=== PATIENT | male | born 1990 | race Caucasian/White ===

== ENCOUNTER 2019-05-16 13:25 | Inpatient (IN) | payer OTHER ==
[2019-05-16 14:02] VITALS: BMI 30.1
--- NOTE | 2019-05-16 14:27 | HP ---
CIWA Score Nausea/Vomitin Muscle Tremors: 2 Anxiety: 3 Agitation: 3 Paroxysmal Sweats: 1-Minimal Palms Moist Orientation: 0-Oriented Tacttile Disturbances: 1-Very Mild Itch/Numbness Auditory Disturbances: 1-Very Mild Visual Disturbances: 0-None Headache: 2-Mild CIWA-Ar Total Score: 16 - Admission Criteria OASAS Guidelines: Admission for Medically Managed Detox: Requires at least one of the followin. CIWA greater than 12 2. Seizures within the past 24 hours 3. Delirium tremens within the past 24 hours 4. Hallucinations within the past 24 hours 5. Acute intervention needed for co occurring medical disorder 6. Acute intervention needed for co occurring psychiatric disorder 7. Severe withdrawal that cannot be handled at a lower level of care (continued vomiting, continued diarrhea, abnormal vital signs) requiring intravenous medication and/or fluids 8. Admission ROS BHS - HPI Chief Complaint: i need help to stop drinking Allergies/Adverse Reactions: Allergies Allergy/AdvReac Type Severity Reaction Status Date / Time No Known Allergies Allergy Verified 05/16/19 13:51 History of Present Illness: this 29 years old male with alcohol dependence,seeking detox,withdrawal symptom, multiple admissions in detox,last in [place],in 02/27 had history of frequent falls syncope alcohol related history of hypertension no significant period of sobriety plan for out patient program ,aa meeting depression Exam Limitations: No Limitations - Ebola screening Have you traveled outside of the country in the last 21 days: No (N) Have you had contact with anyone from an Ebola affected area: No Do you have a fever: No - Review of Systems Constitutional: Loss of Appetite, Malaise, Night Sweats, Changes in sleep, Weakness EENT: reports: Nose Congestion Respiratory: reports: No Symptoms reported Cardiac: reports: No Symptoms Reported GI: reports: Nausea, Vomiting, Abdominal cramping : reports: No Symptoms Reported Musculoskeletal: reports: Back Pain, Muscle Pain Integumentary: reports: Dryness Neuro: reports: Headache, Tremors Endocrine: reports: No Symptoms Reported Hematology: reports: No Symptoms Reported Psychiatric: reports: No Sypmtoms Reported, Judgement Intact, Mood/Affect Appropiate, Orientated x3 Other Systems: Reviewed and Negative Patient History - Patient Medical History Hx Anemia: No Hx Asthma: No Hx Chronic Obstructive Pulmonary Disease (COPD): No Hx Cancer: No Hx Cardiac Disorders: No Hx Congestive Heart Failure: No Hx Hypertension: Yes (on inderal) Hx Hypercholesterolemia: No Hx Pacemaker: No HX Cerebrovascular Accident: No Hx Seizures: No Hx Dementia: No Hx Diabetes: No Hx Gastrointestinal Disorders: No Hx Liver Disease: No Hx Genitourinary Disorders: No Hx Sexually Transmitted Disorders: No Hx Renal Disease (ESRD): No Hx Thyroid Disease: No Hx Human Immunodeficiency Virus (HIV): No (last 02/27 negative) Hx Hepatitis C: No Hx Depression: Yes Hx Suicide Attempt: No Hx Bipolar Disorder: No Hx Schizophrenia: No Other Medical History: no suicidal,no homicidal - Patient Surgical History Hx Appendectomy: Yes (in 2009 [facility]) Hx Cholecystectomy: No Hx Genitourinary Surgery: No Hx Section: No Hx Orthopedic Surgery: No Hx Hysterectomy: No Anesthesia Reaction: No - PPD History Documented Results: Negative w/o proof Implanted On Prior [facility] Admission?: No PPD to be Administered?: No - Smoking Cessation Smoking history: Never smoked - Substance & Tx. History Hx Alcohol Use: Yes Hx Substance Use: No Substance Use Type: Alcohol Hx Substance Use Treatment: Yes (last in [place]) - Substances abused Alcohol Substance route: Oral Frequency: Daily Amount used: 1 liter of vodka Age of first use: 18 Date of last use: 05/16/19 Family Disease History - Family Disease History Family Disease History: CA: Father (), Mother () Admission Physical Exam BHS - Vital Signs Vital Signs: Vital Signs - 24 hr 05/16/19 13:50 Temperature 98.9 F Pulse Rate 137 H Respiratory 18 Rate Blood Pressure 157/99 - Physical General Appearance: Yes: Moderate Distress, Tremorous, Irritable, Sweating, Anxious HEENTM: Yes: Normocephalic, BILLY, Pharynx Normal Respiratory: Yes: Lungs Clear, Normal Breath Sounds, No Respiratory Distress Neck: Yes: Within Normal Limits, Supple, Trachea in good position Breast: Yes: Within Normal Limits Cardiology: Yes: Tachycardia Abdominal: Yes: Within Normal Limits, Normal Bowel Sounds, Non Tender, Flat, Soft Genitourinary: Yes: Within Normal Limits Back: Yes: Muscle Spasm Musculoskeletal: Yes: full range of Motion, Back pain, Muscle Pain Extremities: Yes: Tremors, Other (ecchymosis of right knee) Neurological: Yes: Within Normal Limits, blood bank custodian II-XII NML intact, Fully Oriented, Alert, Motor Strength 5/5 Integumentary: Yes: Dry Lymphatic: Yes: Within Normal Limits - Diagnostic (1) Alcohol dependence with uncomplicated withdrawal Current Visit: Yes Status: Acute (2) Alcohol dependence with uncomplicated intoxication Current Visit: Yes Status: Acute (3) Syncope Current Visit: Yes Status: Acute (4) Frequent falls Current Visit: Yes Status: Acute (5) Hypertension Current Visit: Yes Status: Acute (6) Depression Current Visit: Yes Status: Acute Cleared for Admission S - Detox or Rehab [facility] Level of Care: Medically Managed Detox Regimen/Protocol: Librium Breathalyzer - Breathalyzer Breathalyzer: 0.183 Inpatient Rehab Admission - Rehab Decision to Admit Inpatient rehab admission?: No
[2019-05-16] MEDS ORDERED: MAGNESIUM HYDROX 2400MG/30ML ORAL SUSPENSION 30 ML CUP PO PRN (14:38)
[2019-05-16] MEDS ORDERED: MAGNESIUM CITRATE 300 ML BOTTLE PO PRN (14:38)
[2019-05-16] MEDS ORDERED: ACETAMINOPHEN 325 MG TABLET (FP) PO PRN ×2 (14:38)
[2019-05-16] MEDS ORDERED: METHOCARBAMOL 500 MG TABLET PO PRN (14:38)
[2019-05-16] MEDS ORDERED: MELATONIN 5 MG TABLETS PO PRN (14:38)
[2019-05-16] MEDS ORDERED: IBUPROFEN 400 MG TABLET (FP) PO PRN (14:38)
[2019-05-16] MEDS ORDERED: MENTHOL/PHENOL 1 EACH UD MM PRN (14:38)
[2019-05-16] MEDS ORDERED: MAG HYDROX/AL HYDROX/SIMETH 30 ML UNIT-DOSE CUP PO PRN (14:38)
[2019-05-16] MEDS ORDERED: BISMUTH SUBSALICYLATE 524 MG/30 ML UD PO PRN (14:38)
[2019-05-16] MEDS ORDERED: chlordiazePOXIDE HCL 25 MG CAPSULE PO ONE (15:30)
[2019-05-16] MEDS: ONDANSETRON *ODT* 4 MG TABLET SL PRN ×2 (15:57→21:49)
[2019-05-16] MEDS: chlordiazePOXIDE HCL 25 MG CAPSULE PO SCH ×2 (17:08→22:50)
[2019-05-16] MEDS: hydrOXYzine HCL 25 MG TABLET (FP) PO PRN (17:54)
[2019-05-16] MEDS: chlordiazePOXIDE HCL 25 MG CAPSULE PO PRN (20:10)
[2019-05-16] MEDS ORDERED: cloNIDine HCL 0.1 MG TABLET PO ONE (21:55)
[2019-05-16] MEDS ORDERED: ASPIRIN 81 MG CHEWABLE TABLETS PO ONE (21:57)
[2019-05-16] MEDS ORDERED: ASPIRIN COATED 81 MG TABLET.EC ONE (22:02)
[2019-05-16] MEDS: THIAMINE HCL 100 MG TABLET (FP) PO SCH (22:07)
--- NOTE | 2019-05-16 22:17 | PN ---
[facility] Progress Note Note: Patient's blood pressure was B/P 156/99 and HR 128. Patient appears very anxious and tremorous Vital Signs Temperature 99.0 F 05/16/19 21:55 Pulse Rate 128 H 05/16/19 21:55 Respiratory Rate 18 05/16/19 21:55 Blood Pressure 156/99 05/16/19 21:55 O2 Sat by Pulse Oximetry (%) Action: Clonidine 0.1mg tablet oral ordered Aspirin 81mg tablet oral ordered Vistaril 25mg tablet due and was administered by the nurse EKG ordered
--- NOTE | 2019-05-17 00:59 | PN ---
[facility] Progress Note Note: Patient's EKG indicates Prolonged QT with QT/QTc of 452/515ms respectively Patient reports that his EKG is usually abnormal HydroxyzineHCL 50mg tablet oral given
[2019-05-17] MEDS: hydrOXYzine HCL 25 MG TABLET (FP) PO PRN ×2 (01:08→11:48)
[2019-05-17] MEDS: chlordiazePOXIDE HCL 25 MG CAPSULE PO SCH ×4 (05:39→22:30)
[2019-05-17] MEDS: ONDANSETRON *ODT* 4 MG TABLET SL PRN ×2 (05:46→11:48)
[2019-05-17] MEDS: PRENATAL VITAMINS W/ FOLIC ACID TABLET (FP) PO SCH (10:14)
[2019-05-17 10:58] LABS: ALBUMIN 4.9 g/dl (3.4-5.0); BILIRUBIN,TOTAL 1.4 mg/dL (0.2-1); BLOOD UREA NITROGEN 14.6 mg/dL (7-18); CALCIUM 9.4 mg/dL (8.5-10.1); CREATININE 1.1 mg/dL (0.55-1.3); POTASSIUM 3.9 mmol/L (3.5-5.1); TOT PROT 8.3 g/dl (6.4-8.2)
[2019-05-17 11:10] LABS: MCH 29.6 pg (25.7-33.7)
--- NOTE | 2019-05-17 11:27 | CONSULT ---
[facility] Psychiatric Consult - Data Date of interview: 05/17/19 Admission source: [facility] Identifying data: Patient is a 29 year old single male, without children, unemployed, domiciled, and is supported by his financial savings account. This is patient's first admission to detox at [facility]. Patient admitted to for alcohol dependence. Substance Abuse History: Smoking Cessation. Smoking history: Never smoked. - Substance & Tx. History. Hx Alcohol Use: Yes. Hx Substance Use: No. Substance Use Type: Alcohol. Hx Substance Use Treatment: Yes (last in [place]). - Substances abused. Alcohol. Substance route: Oral. Frequency: Daily. Amount used: 1 liter of vodka. Age of first use: 18. Date of last use: 05/16/19 Medical History: hypertension. Psychiatric History: Patient denies h/o psychiatric hospitalization and suicide attempt. First psychiatric contact was in 2009 at an outpatient clinic in [place] while attending College. He was diagnosed with Major depressive disorder and Generalized anxiety disorder. Mr. Lema reports being prescribed prozac which was than changed to zoloft. After several months he was again prescribed prozac and wellbutrin was added. States he continued drinking daily despite accepting psychotropic medications. Since his return home from [place] in 2011 he has only seen a mental health provider while in detox/rehab setting. Mr. Bhakta was at a Rehab in [place] and was resumed on wellbutrin 300mg XL + Prozac 30mg daily. States he receives refills from his PCP. Patient reports nonadherence to wellbutrin 300mg XL for over two weeks and reports last taking prozac 4-5 days ago. At present patient is anxious, and is experiencing difficulty sleeping. Physical/Sexual Abuse/Trauma History: denies. Mental Status Exam - Mental Status Exam Alert and Oriented to: Time, Place, Person Cognitive Function: Good Patient Appearance: Well Groomed Mood: Anxious Affect: Mood Congruent Patient Behavior: Restless (Patient is actively withdrawing. He is tremelous.), Cooperative Speech Pattern: Clear Voice Loudness: Normal Thought Process: Intact, Goal Oriented Thought Disorder: Not Present Hallucinations: Denies Suicidal Ideation: Denies Homicidal Ideation: Denies Insight/Judgement: Poor Sleep: Poorly Appetite: Fair Muscle strength/Tone: Normal Gait/Station: Normal Psychiatric Findings - Problem List ([place] 1, 2,3) (1) Depressive disorder Current Visit: Yes Status: Chronic (2) Alcohol dependence with uncomplicated withdrawal Current Visit: Yes Status: Acute (3) Generalized anxiety disorder Current Visit: Yes Status: Chronic (4) Alcohol-induced sleep disorder Current Visit: Yes Status: Acute - Initial Treatment Plan Initial Treatment Plan: Psychoeducation provided. Detoxification in progress. Will order Prozac 20mg + Seroquel 50mg for insomnia. Will d/c vistaril 25mg q6h and will order vistaril 50mg q6h for anxiety. Wellbutrin to be held due to risk of seizure being induce. Patient is visibily shaking and tremulous. Benefits and side effects discussed. Verbal consent given.
[2019-05-17 11:52] LABS: HEMATOCRIT 42.6 % (35.4-49); HEMOGLOBIN 14.5 GM/dL (11.7-16.9); MCHC 34.1 g/dl (32.0-35.9); MEAN CELL VOLUME 86.8 fl (80-96); MEAN PLT VOLUME 7.8 fl (7.5-11.1); RBC 4.91 M/mm3 (4.00-5.60); WHITE BLOOD COUNT 3.5 K/mm3 (4.0-10.0)
[2019-05-17 11:55] LABS: PLATELET COUNT 63 K/MM3 (134-434)
[2019-05-17] MEDS: chlordiazePOXIDE HCL 25 MG CAPSULE PO PRN (12:33)
[2019-05-17] MEDS ORDERED: hydrOXYzine HCL 25 MG TABLET (FP) PO PRN (12:49)
--- NOTE | 2019-05-17 13:34 | EKG ---
Test Reason : Blood Pressure : / mmHG Vent. Rate : 078 BPM Atrial Rate : 078 BPM P-R Int : 208 ms QRS Dur : 088 ms QT Int : 452 ms P-R-T Axes : 059 059 053 degrees QTc Int : 515 ms NORMAL SINUS RHYTHM WITH 1ST DEGREE A-V BLOCK PROLONGED QT NONSPECIFIC ST ABNORMALITY ABNORMAL ECG WHEN COMPARED WITH ECG OF 16-MAY-2019 15:04, NO SIGNIFICANT CHANGE WAS FOUND Confirmed by MD MARILYNN, JOSEPH ([id number]) on 05/17/2019 1:34:15 PM Referred By: STONE ARAGON Confirmed By:JOSEPH SUBRAMANIAN MD
--- NOTE | 2019-05-17 13:57 | EKG ---
Test Reason : Blood Pressure : / mmHG Vent. Rate : 105 BPM Atrial Rate : 105 BPM P-R Int : 176 ms QRS Dur : 078 ms QT Int : 380 ms P-R-T Axes : 065 053 052 degrees QTc Int : 502 ms SINUS TACHYCARDIA OTHERWISE NORMAL ECG NO PREVIOUS ECGS AVAILABLE Confirmed by MD MARILYNN, JOSEPH ([id number]) on 05/17/2019 1:57:11 PM Referred By: LUKASZ ARAGON Confirmed By:JOSEPH SUBRAMANIAN MD
[2019-05-17] MEDS ORDERED: TRIMETHOBENZAMIDE HCL 200MG/2ML INJ IM PRN (14:00)
--- NOTE | 2019-05-17 16:45 | PN ---
S CIWA - CIWA Score Nausea/Vomitin Muscle Tremors: 4-Moderate,w/Arms Extend Anxiety: 3 Agitation: 1-Slight > Activity Paroxysmal Sweats: 3 Orientation: 2-Disoriented Date<2 days Tacttile Disturbances: 2-Mild Itch/Numbness/Burn Auditory Disturbances: 0-None Visual Disturbances: 0-None Headache: 0-None Present CIWA-Ar Total Score: 18 BHS Progress Note (SOAP) Subjective: Interrupted sleep, Nausea, Tremors, Body Aches, Sweating, Poor Appetite. Objective: PATIENT A & O X 2 (UNCERTAIN ABOUT CURRENT DAY / DATE). PATIENT OBSERVED AMBULATING ON UNIT UNASSISTED. IN NO ACUTE DISTRESS. 05/17/19 16:42 Vital Signs Temperature 97.9 F 05/17/19 13:23 Pulse Rate 69 05/17/19 15:30 Respiratory Rate 18 05/17/19 15:30 Blood Pressure 146/84 05/17/19 13:23 O2 Sat by Pulse Oximetry (%) Laboratory Tests 05/17/19 05/17/19 05/17/19 07:42 07:42 07:42 WBC 3.5 L RBC 4.91 Hgb 14.5 Hct 42.6 MCV 86.8 MCH 29.6 MCHC 34.1 RDW 14.0 Plt Count 63 L MPV 7.8 Sodium 132 L Potassium 3.9 Chloride 87 L Carbon Dioxide 35 H Anion Gap 9 BUN 14.6 Creatinine 1.1 Est GFR (CKD-EPI)AfAm 104.59 Est GFR (CKD-EPI)NonAf 90.24 Random Glucose 104 Calcium 9.4 Total Bilirubin 1.4 H AST 111 H ALT 152 H Alkaline Phosphatase 75 Total Protein 8.3 H Albumin 4.9 RPR Titer HIV 1&2 Antibody Screen Negative HIV P24 Antigen Negative 05/17/19 07:42 WBC RBC Hgb Hct MCV MCH MCHC RDW Plt Count MPV Sodium Potassium Chloride Carbon Dioxide Anion Gap BUN Creatinine Est GFR (CKD-EPI)AfAm Est GFR (CKD-EPI)NonAf Random Glucose Calcium Total Bilirubin AST ALT Alkaline Phosphatase Total Protein Albumin RPR Titer Nonreactive HIV 1&2 Antibody Screen HIV P24 Antigen LABS NOTED. Assessment: 05/17/19 16:42 WITHDRAWAL SYMPTOMS. ELEVATED LIVER ENZYME LEVELS (AST, ALT). HYPERBILIRUBINEMIA. 05/17/19 16:45 Plan: CONTINUE DETOX. INCREASE DAILY PO WATER INTAKE. ENSURE PO FOR CALORIC SUPPLEMENTATION. HEPATIC FUNCTION PANEL ORDERED FOR TOMORROW AM FOR ELEVATED LIVER ENZYME AND TOTAL BILIRUBIN LEVELS NOTED ON DETOX ADMISSION. PATIENT REQUESTS ZOFRAN FOR NAUSEA. HOWEVER, DUE TO PROLONGES QT NOTED ON DETOX ADMISSION ECG, PRN TIGAN IM ORDERED FOR NAUSEA INSTEAD.
[2019-05-17] MEDS ORDERED: ONDANSETRON *ODT* 4 MG TABLET SL PRN (18:00)
[2019-05-17] MEDS: QUEtiapine FUMARATE 50 MG TABLET PO SCH (22:31)
[2019-05-17] MEDS: THIAMINE HCL 100 MG TABLET (FP) PO SCH (22:31)
[2019-05-18] MEDS: chlordiazePOXIDE HCL 25 MG CAPSULE PO SCH ×4 (05:47→22:10)
[2019-05-18 09:56] LABS: ALBUMIN 4.5 g/dl (3.4-5.0); BILIRUBIN,DIRECT 0.3 mg/dL (0.0-0.2); BILIRUBIN,TOTAL 1.4 mg/dL (0.2-1); TOT PROT 7.6 g/dl (6.4-8.2)
[2019-05-18] MEDS: PRENATAL VITAMINS W/ FOLIC ACID TABLET (FP) PO SCH (10:13)
[2019-05-18] MEDS: FLUoxetine HCL 20 MG CAPSULE (FP) PO SCH (10:14)
--- NOTE | 2019-05-18 11:46 | PN ---
[facility] CIWA - CIWA Score Nausea/Vomitin-No Nausea/No Vomiting Muscle Tremors: 3 Anxiety: 3 Agitation: 3 Paroxysmal Sweats: 3 Orientation: 0-Oriented Tacttile Disturbances: 0-None Auditory Disturbances: 0-None Visual Disturbances: 0-None Headache: 0-None Present CIWA-Ar Total Score: 12 S Progress Note (SOAP) Subjective: shakes sweats body aches agitation Objective: 05/18/19 11:44 Vital Signs Temperature 98.6 F 05/18/19 09:32 Pulse Rate 82 05/18/19 09:32 Respiratory Rate 18 05/18/19 09:32 Blood Pressure 132/73 05/18/19 09:32 O2 Sat by Pulse Oximetry (%) Laboratory Tests 05/17/19 05/17/19 05/17/19 07:42 07:42 07:42 WBC 3.5 L RBC 4.91 Hgb 14.5 Hct 42.6 MCV 86.8 MCH 29.6 MCHC 34.1 RDW 14.0 Plt Count 63 L MPV 7.8 Sodium 132 L Potassium 3.9 Chloride 87 L Carbon Dioxide 35 H Anion Gap 9 BUN 14.6 Creatinine 1.1 Est GFR (CKD-EPI)AfAm 104.59 Est GFR (CKD-EPI)NonAf 90.24 Random Glucose 104 Calcium 9.4 Total Bilirubin 1.4 H Direct Bilirubin AST 111 H ALT 152 H Alkaline Phosphatase 75 Total Protein 8.3 H Albumin 4.9 RPR Titer HIV 1&2 Antibody Screen Negative HIV P24 Antigen Negative 05/17/19 05/18/19 07:42 08:00 WBC RBC Hgb Hct MCV MCH MCHC RDW Plt Count MPV Sodium Potassium Chloride Carbon Dioxide Anion Gap BUN Creatinine Est GFR (CKD-EPI)AfAm Est GFR (CKD-EPI)NonAf Random Glucose Calcium Total Bilirubin 1.4 H Direct Bilirubin 0.3 H AST 111 H ALT 137 H Alkaline Phosphatase 76 Total Protein 7.6 Albumin 4.5 RPR Titer Nonreactive HIV 1&2 Antibody Screen HIV P24 Antigen labs noted repeated labs for ast/alt show little improvement. will repeat again aaox3 ambulating no acute distress encouraged water intake as needed Assessment: 05/18/19 11:45 withdrawal sx Plan: continue detox increase fluids repeat liver enzymes
[2019-05-18] MEDS: chlordiazePOXIDE HCL 25 MG CAPSULE PO PRN (12:27)
[2019-05-18] MEDS: THIAMINE HCL 100 MG TABLET (FP) PO SCH (22:10)
[2019-05-18] MEDS: QUEtiapine FUMARATE 50 MG TABLET PO SCH (22:10)
[2019-05-19] MEDS ORDERED: chlordiazePOXIDE HCL 10 MG CAPSULE PO PRN
[2019-05-19] MEDS: chlordiazePOXIDE HCL 10 MG CAPSULE PO SCH ×4 (05:51→22:20)
[2019-05-19] MEDS: PRENATAL VITAMINS W/ FOLIC ACID TABLET (FP) PO SCH (10:16)
[2019-05-19] MEDS: FLUoxetine HCL 20 MG CAPSULE (FP) PO SCH (10:16)
--- NOTE | 2019-05-19 10:45 | PN ---
S CIWA - CIWA Score Nausea/Vomitin-No Nausea/No Vomiting Muscle Tremors: 2 Anxiety: 1-Mildly Anxious Agitation: 1-Slight > Activity Paroxysmal Sweats: 1-Minimal Palms Moist Orientation: 0-Oriented Tacttile Disturbances: 0-None Auditory Disturbances: 0-None Visual Disturbances: 0-None Headache: 0-None Present CIWA-Ar Total Score: 5 BHS Progress Note (SOAP) Subjective: mild shakes feeling much better i want to leave tomorrow. Objective: 05/19/19 10:44 Vital Signs Temperature 98.6 F 05/19/19 09:40 Pulse Rate 74 05/19/19 09:40 Respiratory Rate 18 05/19/19 09:40 Blood Pressure 131/78 05/19/19 09:40 O2 Sat by Pulse Oximetry (%) Laboratory Tests 05/17/19 05/17/19 05/17/19 07:42 07:42 07:42 WBC 3.5 L RBC 4.91 Hgb 14.5 Hct 42.6 MCV 86.8 MCH 29.6 MCHC 34.1 RDW 14.0 Plt Count 63 L MPV 7.8 Sodium 132 L Potassium 3.9 Chloride 87 L Carbon Dioxide 35 H Anion Gap 9 BUN 14.6 Creatinine 1.1 Est GFR (CKD-EPI)AfAm 104.59 Est GFR (CKD-EPI)NonAf 90.24 Random Glucose 104 Calcium 9.4 Total Bilirubin 1.4 H Direct Bilirubin AST 111 H ALT 152 H Alkaline Phosphatase 75 Total Protein 8.3 H Albumin 4.9 RPR Titer HIV 1&2 Antibody Screen Negative HIV P24 Antigen Negative 05/17/19 05/18/19 07:42 08:00 WBC RBC Hgb Hct MCV MCH MCHC RDW Plt Count MPV Sodium Potassium Chloride Carbon Dioxide Anion Gap BUN Creatinine Est GFR (CKD-EPI)AfAm Est GFR (CKD-EPI)NonAf Random Glucose Calcium Total Bilirubin 1.4 H Direct Bilirubin 0.3 H AST 111 H ALT 137 H Alkaline Phosphatase 76 Total Protein 7.6 Albumin 4.5 RPR Titer Nonreactive HIV 1&2 Antibody Screen HIV P24 Antigen repeated labs pending aaox3 ambulating no acute distress Assessment: 05/19/19 10:44 mild withdrawal sx Plan: continue detox with refined regimen increase fluids pending labs d/c in am
[2019-05-19 13:01] LABS: SGOT/AST 89 U/L (15-37); SGPT/ALT 126 U/L (13-61)
[2019-05-19 13:05] LABS: INR 0.94 (0.83-1.09); PROTHROMBIN TIME (PATIENT) 11.1 SEC (9.7-13.0)
--- NOTE | 2019-05-19 14:35 | EKG ---
Test Reason : Blood Pressure : / mmHG Vent. Rate : 068 BPM Atrial Rate : 068 BPM P-R Int : 200 ms QRS Dur : 086 ms QT Int : 548 ms P-R-T Axes : 059 066 071 degrees QTc Int : 582 ms NORMAL SINUS RHYTHM NONSPECIFIC T WAVE ABNORMALITY PROLONGED QT ABNORMAL ECG WHEN COMPARED WITH ECG OF 16-MAY-2019 22:33, T WAVE INVERSION NOW EVIDENT IN ANTERIOR LEADS QT HAS LENGTHENED Confirmed by Jake Grullon ([id number]) on 05/19/2019 2:35:06 PM Referred By: STONE ARAGON Confirmed By:Jake Grullon
[2019-05-19] MEDS: THIAMINE HCL 100 MG TABLET (FP) PO SCH (22:20)
[2019-05-19] MEDS: QUEtiapine FUMARATE 50 MG TABLET PO SCH (22:20)
[2019-05-20] MEDS ORDERED: chlordiazePOXIDE HCL 10 MG CAPSULE PO SCH (05:00)
--- NOTE | 2019-05-20 09:14 | DS ---
[facility] Detox Discharge Summary Admission Date: 05/16/19 Discharge Date: 05/20/19 - History Present History: Alcohol Dependence - Physical Exam Results Vital Signs: Vital Signs Temperature 97.7 F 05/20/19 06:38 Pulse Rate 74 05/20/19 06:38 Respiratory Rate 18 05/20/19 06:38 Blood Pressure 114/63 05/20/19 06:38 O2 Sat by Pulse Oximetry (%) - Treatment Hospital Course: Detox Protocol Followed, Detoxed Safely, Responded well, Discharged Condition Good, Rehab Referral Accepted - Medication Discharge Medications: Ambulatory Orders Bupropion HCl [Wellbutrin -] 300 mg PO DAILY 05/16/19 Fluoxetine HCl [Prozac] 30 mg PO DAILY 05/16/19 Multivitamins [Tab-A-Vit -] 1 tab PO DAILY 05/16/19 hydrOXYzine PAMOATE [Vistaril -] 50 mg PO PRN PRN 05/16/19 propRANOLol HCL [Inderal] 20 mg PO BID 05/16/19 - Diagnosis (1) Alcohol dependence with uncomplicated intoxication Current Visit: Yes Status: Chronic (2) Alcohol-induced sleep disorder Current Visit: Yes Status: Acute (3) Depression Current Visit: Yes Status: Acute (4) Hypertension Current Visit: Yes Status: Chronic Qualifiers: Hypertension type: essential hypertension Qualified Code(s): I10 - Essential (primary) hypertension (5) Syncope Current Visit: Yes Status: Acute (6) Depressive disorder Current Visit: Yes Status: Chronic (7) Generalized anxiety disorder Current Visit: Yes Status: Chronic - AMA Did Patient Leave Against Medical Advice: No (pt declined rehab; referral to [facility])
[2019-05-20] MEDS: FLUoxetine HCL 20 MG CAPSULE (FP) PO SCH (09:16)
[2019-05-20] MEDS: PRENATAL VITAMINS W/ FOLIC ACID TABLET (FP) PO SCH (09:16)
[2019-05-20 09:36] VITALS: BP 129/75; PULSE 73; TEMP 98.3
[2019-05-21] MEDS ORDERED: chlordiazePOXIDE HCL 10 MG CAPSULE PO ONE (05:00)
== END 2019-05-20 09:24 | disposition home or self-care (01) | DRG 897 ==
LOC: YASAS 13:25 → Y6N 14:40
PROVIDERS: ADMIT Surgery; ATTEND Surgery
PROC: HZ2ZZZZ Detoxification Services for Substance Abuse Treatment (ICD-10-PCS; principal; 2019-05-16)
DX: F10.230 Alcohol dependence with withdrawal, uncomplicated (principal); F10.220 Alcohol dependence with intoxication, uncomplicated; F10.282 Alcohol dependence with alcohol-induced sleep disorder; F41.1 Generalized anxiety disorder; F32.9 Major depressive disorder, single episode, unspecified; I10 Essential (primary) hypertension; R55 Syncope and collapse; R94.5 Abnormal results of liver function studies; E80.6 Other disorders of bilirubin metabolism; R94.31 Abnormal electrocardiogram [ECG] [EKG]; R29.6 Repeated falls
CPT/HCPCS: 36415; 80053; 80076; 84450; 84460; 85027; 85610; 86480; 86593; 87389; 93005; 93010; J0735; Q0162